=== PATIENT | female | born 1970 | race Caucasian/White ===

== ENCOUNTER 2019-05-07 19:04 | Inpatient (IN) | payer BC ==
[2019-05-07] MEDS ORDERED: Morphine 4 MG/ML VIAL ONE (20:10)
[2019-05-07] MEDS ORDERED: Ondansetron PF 4 MG/2 ML Vial ONE (20:11)
[2019-05-07] MEDS ORDERED: Piperacillin/Tazobactam 4.5 GM VIAL ONE (20:11)
[2019-05-07] MEDS ORDERED: Acetaminophen 500 MG TAB ONE (20:25)
--- NOTE | 2019-05-07 20:35 | RAD ---
XR Chest 1 View Portable History: Postsurgical fever Comparison: None. Findings: Lungs are clear. Left axillary surgical clips. No pneumothorax or effusion. No acute osseou s abnormality. Impression: No acute intrathoracic abnormality.
[2019-05-07 20:36] LABS: #Eosinphils 0.1 thou/uL (0.0-0.7); #Lymphocytes 1.4 thou/uL (1.20-3.40); #Monocytes 0.4 thou/uL (0.11-0.59); #Neutrophils 5.2 thou/uL (1.40-6.50); %Basophils 0.6 % (0.0-1.0); %Eosinophils 1.2 % (0.0-10.0); %Lymphocytes 19.1 % (21.0-51.0); %Neutrophils 73.1 % (42.0-75.0); Hemoglobin 12.6 g/dL (12.0-16.0); Mean Corpuscular HGB CONC 34.1 g/dL (32.0-36.0); Mean Corpuscular Hemoglobin 30.5 pg (27.0-31.0); Mean Corpuscular Volume 89.6 fL (78.0-98.0); Platelet Count 223 thou/uL (130-400); Red Blood Cell (RBC) Count 4.14 mill/uL (4.20-5.40); White Blood Cell (WBC) Count 7.1 thou/uL (4.8-10.8)
[2019-05-07 20:59] LABS: ALT (SGPT) 9 U/L (8-55); AST (SGOT) 15 U/L (5-34); Albumin 3.8 g/dL (3.5-5.0); Alkaline Phosphatase 68 U/L (40-110); Anion Gap 10 mmol/L (10-20); BUN (Urea Nitrogen) 7 mg/dL (9.8-20.1); Bilirubin, Total 0.3 mg/dL (0.2-1.2); CK (CPK) 76 U/L (29-168); Calc. Creatinine Clearance 0 mL/min (70-130); Calcium 9.2 mg/dL (7.8-10.44); Carbon Dioxide 31 mmol/L (22-29); Chloride 100 mmol/L (98-107); Estimated GFR-MDRD 85; Glucose 108 mg/dL (70-105); Lipase 11 U/L (8-78); Protein, Total 6.8 g/dL (6.0-8.3); Sodium 137 mmol/L (136-145)
[2019-05-08 00:35] LABS: #Eosinphils 0.1 thou/uL (0.0-0.7); #Lymphocytes 1.5 thou/uL (1.20-3.40); #Monocytes 0.5 thou/uL (0.11-0.59); #Neutrophils 3.4 thou/uL (1.40-6.50); %Basophils 0.8 % (0.0-1.0); %Eosinophils 0.9 % (0.0-10.0); %Lymphocytes 27.1 % (21.0-51.0); %Monocytes 8.3 % (0.0-10.0); %Neutrophils 62.9 % (42.0-75.0); Hemoglobin 9.7 g/dL (12.0-16.0); Mean Corpuscular HGB CONC 33.1 g/dL (32.0-36.0); Mean Corpuscular Hemoglobin 30.8 pg (27.0-31.0); Mean Corpuscular Volume 93.1 fL (78.0-98.0); Mean Platelet Volume 6.9 fL (7.4-10.4); Platelet Count 151 thou/uL (130-400); RBC Distribution Width 11.9 % (11.5-14.5); Red Blood Cell (RBC) Count 3.15 mill/uL (4.20-5.40); White Blood Cell (WBC) Count 5.3 thou/uL (4.8-10.8)
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
[2019-05-08] MEDS ORDERED: Acetaminophen 325 MG TAB PO PRN (02:33)
[2019-05-08] MEDS ORDERED: Ondansetron ODT 4 MG TAB PO PRN (02:33)
--- NOTE | 2019-05-08 02:45 | PDOC.FM ---
- Objective Result Diagrams: 05/08/19 00:24 05/07/19 20:15 Addendum - Attending - Attending Attestation Date/Time: 05/08/19241 I personally evaluated the patient and discussed the management with Dr. White at time of admission this morning. I agree with the History, Examination, Assessment and Plan as discussed. H&P pending. Ms. Epperson is being admitted to IM due to hypotension that began in the ER but that has now resolved with fluid resuscitation. Antibx given in ER. Dr Nye has been contacted and will see her this morning. Currently, she is stable.
[2019-05-08 02:59] VITALS: BMI 25.9
[2019-05-08 03:10] LABS: Bilirubin Negative (Negative); Blood, Urine Negative (Negative); Clarity Clear (Clear); Glucose, Urine (Dipstick) Normal (Negative); Leukocyte Negative Leu/uL (Negative); Nitrite Negative (Negative); Protein, Urine (Dipstick) Negative (Neg-Trace); Urobilinogen Normal mg/dL (Less than 2)
[2019-05-08] MEDS: Lactated Ringer's 1,000 ML IV SCH ×2 (03:10→14:28)
[2019-05-08 03:14] LABS: #Eosinphils 0.1 thou/uL (0.0-0.7); #Lymphocytes 1.5 thou/uL (1.20-3.40); #Monocytes 0.4 thou/uL (0.11-0.59); #Neutrophils 3.1 thou/uL (1.40-6.50); %Basophils 0.9 % (0.0-1.0); %Lymphocytes 29.2 % (21.0-51.0); %Monocytes 7.4 % (0.0-10.0); %Neutrophils 61.4 % (42.0-75.0); Hemoglobin 10.8 g/dL (12.0-16.0); Mean Corpuscular HGB CONC 33.3 g/dL (32.0-36.0); Mean Corpuscular Hemoglobin 31.1 pg (27.0-31.0); Mean Corpuscular Volume 93.3 fL (78.0-98.0); Mean Platelet Volume 7.1 fL (7.4-10.4); Platelet Count 158 thou/uL (130-400); Red Blood Cell (RBC) Count 3.47 mill/uL (4.20-5.40)
[2019-05-08] MEDS ORDERED: Calcium Carbonate 500 MG ChewTAB PO PRN (03:14)
[2019-05-08 03:46] LABS: ALT (SGPT) 11 U/L (8-55); AST (SGOT) 17 U/L (5-34); Albumin 3.1 g/dL (3.5-5.0); Alkaline Phosphatase 52 U/L (40-110); Anion Gap 9 mmol/L (10-20); BUN (Urea Nitrogen) 6 mg/dL (9.8-20.1); Bilirubin, Total 0.2 mg/dL (0.2-1.2); Calc. Creatinine Clearance 118 mL/min (70-130); Calcium 8.3 mg/dL (7.8-10.44); Carbon Dioxide 27 mmol/L (22-29); Chloride 107 mmol/L (98-107); Estimated GFR-MDRD Greater than 90; Globulin 2.5 g/dL (2.4-3.5); Glucose 91 mg/dL (70-105); Potassium 3.9 mmol/L (3.5-5.1); Protein, Total 5.6 g/dL (6.0-8.3); Sodium 139 mmol/L (136-145)
[2019-05-08] MEDS ORDERED: Piperacillin/Tazobactam 3.375 GM VIAL ONE (05:35)
[2019-05-08] MEDS: Piperacillin/Tazobactam 3.375 GM in Sodium Chloride 0.9% 100 ML IVPB SCH ×3 (05:47→17:21)
[2019-05-08] MEDS ORDERED: Acetaminophen/Codeine 30-300mg Tablet ONE (05:51)
[2019-05-08] MEDS: Acetaminophen/Codeine 30-300mg Tablet PO PRN ×2 (06:00→10:34)
[2019-05-08] MEDS ORDERED: ALPRAZOLAM 3 MG PO SCH ×3 (09:00→14:30)
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
[2019-05-08] MEDS ORDERED: traMADol HCl 50 MG TAB PO PRN (10:20)
[2019-05-08] MEDS: Enoxaparin Sodium 40 MG/0.4 ML SYRINGE SC SCH (10:33)
[2019-05-08] MEDS: DULoxetine 60 MG CAP PO SCH (10:33)
[2019-05-08] MEDS: Hydroxychloroquine Sulfate 200 MG TAB PO SCH ×2 (10:34→20:58)
[2019-05-08] MEDS: Gabapentin 300 MG CAP PO SCH (10:34)
[2019-05-08] MEDS: Vancomycin HCl 1.25 GM in Sodium Chloride 0.9% 250 ML 250 ML IVPB SCH ×2 (11:05→20:58)
[2019-05-08] MEDS ORDERED: ISOVUE-370 76%-LOCM 1 ML ONE (14:46)
[2019-05-08] MEDS: Gabapentin 100 MG CAP PO SCH (20:57)
[2019-05-09] MEDS: Piperacillin/Tazobactam 3.375 GM in Sodium Chloride 0.9% 100 ML IVPB SCH ×5 (00:10→23:27)
[2019-05-09] MEDS: Lactated Ringer's 1,000 ML IV SCH ×3 (03:58→18:24)
[2019-05-09] MEDS ORDERED: ALPRAZOLAM 3 MG PO SCH (09:00)
[2019-05-09 09:02] LABS: Vancomycin, Trough 12.8 ug/mL
[2019-05-09] MEDS: Vancomycin HCl 1.25 GM in Sodium Chloride 0.9% 250 ML 250 ML IVPB SCH (09:29)
[2019-05-09] MEDS: DULoxetine 60 MG CAP PO SCH (09:30)
[2019-05-09] MEDS: Enoxaparin Sodium 40 MG/0.4 ML SYRINGE SC SCH (09:30)
[2019-05-09] MEDS: Hydroxychloroquine Sulfate 200 MG TAB PO SCH ×2 (09:30→20:26)
[2019-05-09] MEDS: Gabapentin 300 MG CAP PO SCH (09:30)
[2019-05-09] MEDS: ALPRAZOLAM 3 MG PO SCH (09:44)
--- NOTE | 2019-05-09 18:25 | PDOC.EVN ---
Event Note - Event Note Event Note: Discussed with orthopedic surgery service (Horacio Bustamante). They are ok with hospitalist service signing off, will reconsult if needed.
[2019-05-09] MEDS: Gabapentin 100 MG CAP PO SCH (20:26)
[2019-05-09] MEDS ORDERED: Vancomycin HCl 1.5 GM in Sodium Chloride 0.9% 250 ML 300 ML IVPB SCH (21:00)
[2019-05-10] MEDS ORDERED: Vancomycin HCl 1.5 GM in Sodium Chloride 0.9% 250 ML 300 ML IVPB SCH (01:00)
[2019-05-10] MEDS: Piperacillin/Tazobactam 3.375 GM in Sodium Chloride 0.9% 100 ML IVPB SCH (05:27)
[2019-05-10] MEDS: Lactated Ringer's 1,000 ML IV SCH (05:36)
[2019-05-10 07:07] VITALS: BP 132/79; TEMP 98.2
[2019-05-10] MEDS: Gabapentin 300 MG CAP PO SCH (09:05)
[2019-05-10] MEDS: Hydroxychloroquine Sulfate 200 MG TAB PO SCH (09:06)
[2019-05-10] MEDS: DULoxetine 60 MG CAP PO SCH (09:06)
[2019-05-10] MEDS: Enoxaparin Sodium 40 MG/0.4 ML SYRINGE SC SCH (09:06)
[2019-05-10] MEDS: ALPRAZOLAM 3 MG PO SCH (09:48)
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
== END 2019-05-10 11:10 | disposition home or self-care (01) | DRG 872 ==
LOC: ERS 19:04 → ERHOLD 05-08 01:00 → SJJU 05-08 09:16
PROVIDERS: ADMIT Orthopaedic Surgery; ATTEND Orthopaedic Surgery
DX: A41.9 Sepsis, unspecified organism (principal); L03.116 Cellulitis of left lower limb; F41.9 Anxiety disorder, unspecified; F32.9 Major depressive disorder, single episode, unspecified; I10 Essential (primary) hypertension; M06.9 Rheumatoid arthritis, unspecified; M35.00 Sjogren syndrome, unspecified; Z90.49 Acquired absence of other specified parts of digestive tract; Z98.1 Arthrodesis status; Z85.3 Personal history of malignant neoplasm of breast; Z79.899 Other long term (current) drug therapy; Z90.12 Acquired absence of left breast and nipple
CPT/HCPCS: 36415; 71045; 80053; 80202; 81003; 82550; 83605; 83690; 84145; 85025; 86850; 86900; 86901; 87040; 87086; 87804; 96361; 96365; 96367; 96375; J1650; J2270; J2405; J2543; J3370; J3490; J7050; Q9966